=== PATIENT | male | born 1985 | race African-American/Black ===

== ENCOUNTER 2025-02-24 15:09 | Emergency (ER) | payer MEDICAID ==
[~2025-02-24] VITALS: Ht 177.8 cm; Wt 78.0 kg
[2025-02-24 15:13] VITALS: O2SAT 99
[2025-02-24] MEDS: HYDROCODONE/ACETAMINOPHEN 5/325MG TABLET PO ONE (19:37)
[2025-02-24] MEDS: KETOROLAC 30MG/ML VIAL IM ONE (19:37)
[2025-02-24] MEDS ORDERED: HYDR-4001 MT (20:21)
[2025-02-24] MEDS ORDERED: NAPR-681 MT (20:21)
[2025-02-24 21:21] VITALS: BP 140/81; PULSE 79; RESP 18; TEMP 36.9; O2SAT 99
== END 2025-02-24 21:22 | disposition home or self-care (01) ==
LOC: ER 15:09
DX: S82.52XA Displaced fracture of medial malleolus of left tibia, initial encounter for closed fracture (principal); S60.511A Abrasion of right hand, initial encounter; M54.50 Low back pain, unspecified; I10 Essential (primary) hypertension; W11.XXXA Fall on and from ladder, initial encounter; Y93.89 Activity, other specified; Y92.89 Other specified places as the place of occurrence of the external cause; Y99.8 Other external cause status
CPT/HCPCS: 72100; 73610; 73630; 29515; 96372; 99284; J1885; Z7610